=== PATIENT | female | born 1975 | race Caucasian/White ===

== ENCOUNTER 2021-09-25 16:24 | Emergency (ER) | payer MEDICAID ==
--- NOTE | 2021-09-25 17:52 | EDM.PDOC ---
<Lilo Nick - Last Filed: 09/25/21 17:42> ED HPI GENERAL MEDICAL PROBLEM - General Chief Complaint: Skin Complaint Stated Complaint: SKIN COMPLAINT/VAGINAL AREA Time Seen by Provider: 09/25/21 16:50 Source of Information: Reports: Patient, Significant Other (Wilfredo) History Limitations: Reports: No Limitations - History of Present Illness INITIAL COMMENTS - FREE TEXT/NARRATIVE: Ms. Priyanka Cordova is a pleasant 46-year-old female, , who presents for evaluation of "bumps" in her pelvic area. She reports having these for years, they usually come and go, but within the past few months they have "gotten out of control". She rates the pain a 7/10 when it flares and describes the lesions as "boil like, itchy, leaky, corona, and sharp if squeezed". She gets relief by cleaning a sewing needle with rubbing alcohol then poking the spot. This causes blood and pus to come out. This usually makes the spot go away for awhile. Neosporin helps make the surface of her skin feel better, but the bumps are deep. She is currently going through menopause and is unsure if she has been having fevers. She mentions that she also has similar lesions on her back and stomach. She was seen by a cigarette maker > 20 years ago and doesn't remember if they diagnosed or treated her. She is sexually active and reports both her and her partner have been tested and are clean. She has a remote history of chlamydia and completed treatment. Perineal Area Pain Score (Numeric/FACES): 10 - Related Data Allergies Allergy/AdvReac Type Severity Reaction Status Date / Time Sulfa (Sulfonamide Allergy Rash Verified 09/25/21 16:54 Antibiotics) Home Meds: Home Meds Celecoxib [CeleBREX] 100 mg PO DAILY 09/25/21 [History] Doxycycline [Vibramycin] 100 mg PO BID 10 Days #20 cap 09/25/21 [Rx] Fluconazole [Diflucan] 150 mg PO ONETIME #1 tablet 09/25/21 [Rx] Loratadine 09/25/21 [History] buPROPion [Wellbutrin] 09/25/21 [History] hydrOXYzine HCL [hydrOXYzine] 09/25/21 [History] tiZANidine [Zanaflex] 09/25/21 [History] Past Medical History Musculoskeletal History: Reports: Back Pain, Chronic, Fibromyalgia Psychiatric History: Reports: Anxiety Social & Family History - Tobacco Use Tobacco Use Status *Q: Unknown Ever Used Tobacco ED ROS GENERAL - Review of Systems Constitutional: Reports: No Symptoms HEENT: Reports: No Symptoms Respiratory: Reports: No Symptoms Cardiovascular: Reports: No Symptoms Endocrine: Reports: No Symptoms GI/Abdominal: Reports: No Symptoms : Reports: No Symptoms Musculoskeletal: Reports: No Symptoms Skin: Reports: Erythema, Wound, Lesions Neurological: Reports: No Symptoms Psychiatric: Reports: No Symptoms Hematologic/Lymphatic: Reports: No Symptoms ED EXAM, SKIN/RASH Exam: See Below Exam Limited By: No Limitations General Appearance: Alert, WD/WN, No Apparent Distress Head: Atraumatic, Normocephalic Neck: Normal Inspection, Supple, Non-Tender, Full Range of Motion Respiratory/Chest: No Respiratory Distress, Lungs Clear, Normal Breath Sounds Cardiovascular: Regular Rate, Rhythm GI/Abdominal: Soft, Non-Tender (Female) Exam: Deferred Back Exam: Normal Inspection Extremities: Normal Inspection Neurological: Alert, Oriented, CN II-XII Intact, No Motor/Sensory Deficits Psychiatric: Normal Affect, Normal Mood Skin: Warm, Dry, Intact, Other (Non-fluctuating, round, lesions with erythema and crusting noted. 2 on her abdomen, 1 in her right leg crease, and 1 on her mons pubis. The mons pubis lesion is warm to the touch. ) Location, Skin: Abdomen, Pelvis, Genital (External genitals) Characteristics: Erythematous Associated features: Warmth Lymphatic: No Adenopathy Departure - Departure Disposition: Home, Self-Care 01 Clinical Impression: Skin lesions - Discharge Information Prescriptions: Fluconazole [Diflucan] 150 mg PO ONETIME #1 tablet Doxycycline [Vibramycin] 100 mg PO BID 10 Days #20 cap Referrals: PCP,Not In Area [Primary Care Provider] - Forms: ED Department Discharge Sepsis Event Note (ED) - Evaluation Sepsis Screening Result: No Definite Risk <Shira Calhoun - Last Filed: 09/25/21 21:20> ED ROS GENERAL - Review of Systems Review Of Systems: See Below Course - Vital Signs Last Recorded V/S: Last Vital Signs Temp 98.5 F 09/25/21 16:51 Pulse 82 09/25/21 16:51 Resp 18 09/25/21 16:51 BP 152/97 H 09/25/21 16:51 Pulse Ox 100 09/25/21 16:51 - Re-Assessments/Exams Free Text/Narrative Re-Assessment/Exam: 09/25/21 18:17 Patient was examined by myself and RADHA Nagy student. I agree with HPI and exam as documented by RADHA Nagy. Bedside ultrasound was completed and showed only a very small pocket of fluid deep within the lesion on her mons pubis. Do not feel this would benefit from I&D at this time. We will start her on doxycycline for treatment of infection. Recommend warm compress to the area. Discussed that if the infection would become more superficial or come to ahead, that it may be able to be I&D at that time. She requested that I prescribe a tablet of Diflucan as she tends to get yeast infections when on antibiotics. I will send this. I did recommend that she establish care with a primary care provider as a referral to dermatology would be beneficial as she has not been seen by a cigarette maker in 20 years. She verbalized understanding and agrees with this plan. Patient left the facility after I gave her discharge instructions verbally. She did not stay for the written discharge instructions or discharge packet. [facility] [place]. Departure - Departure Time of Disposition: 18:17 Condition: Good Sepsis Event Note (ED) - Focused Exam Vital Signs: Vital Signs Temp Pulse Resp BP Pulse Ox 09/25/21 16:51 98.5 F 82 18 152/97 H 100
== END 2021-09-25 18:23 | disposition home or self-care (01) ==
LOC: JD.ED 16:24
DX: L98.9 Disorder of the skin and subcutaneous tissue, unspecified (principal); Z88.2 Allergy status to sulfonamides; Z79.899 Other long term (current) drug therapy
CPT/HCPCS: 99282